=== PATIENT | female | born 1980 | race Caucasian/White ===

== ENCOUNTER 2018-01-12 20:23 | Inpatient (IN) ==
[2018-01-12] MEDS ORDERED: KETOROLAC 60 MG/2 ML VIAL IM STA (22:18)
[2018-01-12] MEDS ORDERED: METHOCARBAMOL 500 MG TABLET PO STA (22:18)
[2018-01-12] MEDS ORDERED: methylPREDNISolone SOD SUC 125 MG/2 ML VIAL IM STA (22:18)
[2018-01-12] MEDS ORDERED: METHOCARBAMOL 500 MG TABLET ONE (22:37)
[2018-01-12] MEDS ORDERED: KETOROLAC 60 MG/2 ML VIAL IM ONE (22:37)
[2018-01-12] MEDS ORDERED: methylPREDNISolone SOD SUC 125 MG/2 ML VIAL ONE (22:37)
[2018-01-12 22:58] LABS: Apearance,Urine CLEAR (Clear); Bilirubin,Urine Negative (Negative); Blood, Urine Negative (Negative); Glucose,Urine (UA) >=500 mg/dL (Negative); Ketones,Urine 80 mg/dL (Negative); Mucus,Urine Occasional /LPF (Occasional); Nitrite,Urine Negative (Negative); Protein,Urine Negative; RBC,Urine <1 /HPF (0-4); Squamous Epithelial Cell,Urine Occasional /HPF (0-10); Urine Color Straw (Yellow); Urine Specific Gravity 1.025 (1.001-1.035); Urine Urobilinogen < 2.0 EU/DL (0.2-1.0); WBC,Urine <1 /HPF (0-6)
[2018-01-13] MEDS ORDERED: SODIUM CHLORIDE 0.9% 1,000 ML IV STA ×2 (00:06→01:50)
[2018-01-13 00:41] LABS: Basophils # 0.1 10*3/uL (0.0-0.2); Basophils % 0.8 % (0.0-0.8); Eosinophils # 0.2 10*3/uL (0.0-0.87); Eosinophils % 3.3 % (0.00-10.9); Hematocrit 48.8 VOL% (35.7-47.0); Hemoglobin 16.5 GM/DL (12.0-16.0); Immature Granulocytes % 0.5 %; Immature Granulocytes Absolute 0.03 #; Lymphocytes # 1.3 10*3/uL (1.4-4.0); Lymphocytes % 20.3 % (21.3-54.2); Mean Corpuscular HGB Conc 33.8 GM/DL (32-36); Mean Corpuscular Hemoglobin 28 PG (27-34); Mean Platelet Volume 8.8 FL (9.6-12.0); Monocytes # 0.3 10*3/uL (0.11-0.8); Monocytes % 3.9 % (1.7-12.7); Neutrophils # 4.5 10*3/uL (1.4-7.4); Neutrophils % 71.2 % (38.7-73.9); Platelet Count 369 T/CUMM (130-400); Red Blood Count 5.88 MC/CUMM (3.8-5.5); Red Cell Distribution Width 13.2 % (9.3-17.3); White Blood Count 6.4 T/CUMM (4-12)
[2018-01-13 01:04] LABS: Alanine Aminotransferase 31 U/L (13-56); Albumin 4.6 G/DL (3.4-5.0); Alkaline Phosphatase 97 U/L (45-117); Amylase 40 U/L (25-115); Aspartate Amino Transferase 37 U/L (0-37); Blood Urea Nitrogen 17 MG/DL (7-18); Calcium 8.9 MG/DL (8.5-10.1); Glucose 318 MG/DL (74-106); Osmolality,Calculated 277.5 MOS/KG (273-304); Sodium 132 MMOL/L (136-145); Total Protein 8.8 G/DL (6.4-8.3); Troponin I Only < 0.015 NG/ML (0.00-0.045)
[2018-01-13] MEDS ORDERED: INSULIN REGULAR 100 UNIT/ML IV STA (01:12)
[2018-01-13 01:29] LABS: ABG Base Excess -14.8 MMOL/L (-2.5-2.5); ABG HCO3 13.5 MMOL/L (20-26); ABG Oxygen Saturation 96.8 % (95-100); ABG PCO2 22.4 MM HG (35-48); ABG PH 7.282 (7.35-7.45); ABG PO2 96.2 MM HG (80-95); ABG TCO2 9.2 MMOL/L (23-27); Allen Test Positive; Pt O2 Delivery Device Room Air
[2018-01-13] MEDS ORDERED: SODIUM CHLORIDE 0.9% IV PRN (02:54)
[2018-01-13] MEDS ORDERED: MAGNESIUM SULF RIDER 4 GM in PREMIX 1 EACH IV PRN (02:54)
[2018-01-13] MEDS ORDERED: MAGNESIUM SULF RIDER 2 GM in PREMIX 1 EACH IV PRN (02:54)
[2018-01-13] MEDS ORDERED: DEXTROSE 50% 25 GM/50 ML VIAL IV PRN ×2 (02:54)
[2018-01-13] MEDS ORDERED: BISACODYL 5 MG TABLET PO PRN (02:54)
[2018-01-13] MEDS ORDERED: ACETAMINOPHEN 325 MG TABLET PO PRN (02:54)
[2018-01-13] MEDS ORDERED: SODIUM PHOSPHATE IV PRN (02:54)
[2018-01-13] MEDS ORDERED: POTASSIUM CHLORIDE RIDER 10 MEQ in PREMIX 1 EACH IV PRN (02:54)
[2018-01-13] MEDS ORDERED: SODIUM BICARB INJ 100 MEQ in STERILE WATER INJ 400 ML IV PRN (02:54)
[2018-01-13] MEDS ORDERED: SODIUM CHLORIDE 0.9% 1,000 ML IV ONE (02:54)
[2018-01-13] MEDS ORDERED: INSULIN REGULAR DRIP 100 ML IV SCH (03:00)
[2018-01-13] MEDS: METHOCARBAMOL 750 MG TABLET PO PRN (04:40)
[2018-01-13] MEDS: SODIUM CHLORIDE 0.9% 1,000 ML IV SCH ×2 (05:20→07:40)
[2018-01-13 05:44] LABS: Basophils % 0.2 % (0.0-0.8); Eosinophils % 0.1 % (0.00-10.9); Hematocrit 46.9 VOL% (35.7-47.0); Hemoglobin 14.9 GM/DL (12.0-16.0); Immature Granulocytes % 0.3 %; Immature Granulocytes Absolute 0.03 #; Lymphocytes # 0.6 10*3/uL (1.4-4.0); Lymphocytes % 6.7 % (21.3-54.2); Mean Corpuscular HGB Conc 31.8 GM/DL (32-36); Mean Corpuscular Hemoglobin 27 PG (27-34); Mean Corpuscular Volume 86.2 FL (87-102); Mean Platelet Volume 9.1 FL (9.6-12.0); Monocytes # 0.1 10*3/uL (0.11-0.8); Monocytes % 0.5 % (1.7-12.7); Neutrophils # 8.6 10*3/uL (1.4-7.4); Neutrophils % 92.2 % (38.7-73.9); Platelet Count 321 T/CUMM (130-400); Red Blood Count 5.44 MC/CUMM (3.8-5.5); Red Cell Distribution Width 13.1 % (9.3-17.3); White Blood Count 9.4 T/CUMM (4-12)
[2018-01-13 06:03] LABS: Calcium 7.6 MG/DL (8.5-10.1); Osmolality,Calculated 279.7 MOS/KG (273-304); Potassium 3.8 MMOL/L (3.5-5.1)
[2018-01-13 06:09] LABS: Giant Platelets Few; Hypochromasia 1+; Lymphocytes 6 % (20-55); Platelet Estimate Adequate; Segmented Neutrophils 94 % (50-85); Total Cells Counted 100
[2018-01-13] MEDS: DEXTROSE 5% NACL 0.9% 1,000 ML IV SCH ×4 (06:30→13:24)
[2018-01-13] MEDS ORDERED: SODIUM CHLORIDE 0.9% 1,000 ML IV SCH (07:54)
[2018-01-13 08:22] LABS: Calcium 7.4 MG/DL (8.5-10.1); Osmolality,Calculated 281.7 MOS/KG (273-304); Potassium 3.6 MMOL/L (3.5-5.1)
[2018-01-13] MEDS: PANTOPRAZOLE 40 MG TABLET PO SCH (08:36)
[2018-01-13] MEDS: ENOXAPARIN 40 MG/0.4 ML SYRINGE SUBCUT SCH (08:41)
[2018-01-13 13:28] LABS: Calcium 7.3 MG/DL (8.5-10.1); Osmolality,Calculated 280.3 MOS/KG (273-304); Potassium 3.9 MMOL/L (3.5-5.1)
[2018-01-13 15:26] LABS: Calcium 7.5 MG/DL (8.5-10.1); Osmolality,Calculated 281.1 MOS/KG (273-304); Potassium 3.1 MMOL/L (3.5-5.1)
[2018-01-13] MEDS ORDERED: DEXT 5% NACL 0.9% KCL 20 MEQ 20 MEQ/1,000 ML BAG IV SCH (16:00)
[2018-01-13] MEDS ORDERED: DEXT 5% NACL 0.9% KCL 40 MEQ 40 MEQ/1,000 ML BAG IV SCH (16:00)
[2018-01-13] MEDS ORDERED: GLUCAGON 1 MG VIAL IM PRN (17:24)
[2018-01-13] MEDS: POTASSIUM CHLORIDE INJ 40 MEQ in SODIUM CHLORIDE 0.45% 1,000 ML IV SCH (18:16)
[2018-01-13] MEDS: INSULIN LISPRO 100 UNIT/ML SUBCUT SCH (18:17)
[2018-01-13 19:04] LABS: Calcium 7.9 MG/DL (8.5-10.1); Osmolality,Calculated 283.1 MOS/KG (273-304); Potassium 3.1 MMOL/L (3.5-5.1)
[2018-01-13] MEDS: SODIUM CHLORIDE 0.45% 1,000 ML IV SCH (23:24)
[2018-01-13 23:31] LABS: Calcium 7.5 MG/DL (8.5-10.1); Osmolality,Calculated 290.4 MOS/KG (273-304)
[2018-01-14] MEDS: INSULIN LISPRO 100 UNIT/ML SUBCUT SCH ×4 (00:43→19:07)
[2018-01-14] MEDS: METHOCARBAMOL 750 MG TABLET PO PRN ×2 (00:43→23:22)
[2018-01-14] MEDS: POTASSIUM CHLORIDE INJ 40 MEQ in SODIUM CHLORIDE 0.45% 1,000 ML IV SCH ×2 (04:15→10:04)
[2018-01-14] MEDS: SODIUM CHLORIDE 0.45% 1,000 ML IV SCH ×3 (04:15→21:16)
[2018-01-14] MEDS: ONDANSETRON 4 MG/2 ML VIAL IV PRN ×2 (04:20→21:05)
[2018-01-14] MEDS: ENOXAPARIN 40 MG/0.4 ML SYRINGE SUBCUT SCH (08:29)
[2018-01-14] MEDS: PANTOPRAZOLE 40 MG TABLET PO SCH (08:29)
[2018-01-14 09:18] LABS: Basophils % 0.3 % (0.0-0.8); Eosinophils % 0.5 % (0.00-10.9); Hematocrit 38.9 VOL% (35.7-47.0); Hemoglobin 13.1 GM/DL (12.0-16.0); Immature Granulocytes % 0.3 %; Immature Granulocytes Absolute 0.03 #; Lymphocytes # 1.6 10*3/uL (1.4-4.0); Lymphocytes % 18.4 % (21.3-54.2); Mean Corpuscular HGB Conc 33.7 GM/DL (32-36); Mean Corpuscular Hemoglobin 28 PG (27-34); Mean Corpuscular Volume 82.8 FL (87-102); Mean Platelet Volume 9.3 FL (9.6-12.0); Monocytes # 0.5 10*3/uL (0.11-0.8); Neutrophils # 6.5 10*3/uL (1.4-7.4); Neutrophils % 74.5 % (38.7-73.9); Platelet Count 261 T/CUMM (130-400); Red Cell Distribution Width 13.4 % (9.3-17.3); White Blood Count 8.7 T/CUMM (4-12)
[2018-01-14 09:53] LABS: Calcium 7.7 MG/DL (8.5-10.1); Osmolality,Calculated 289.3 MOS/KG (273-304); Potassium 4.3 MMOL/L (3.5-5.1)
[2018-01-14] MEDS: CALCIUM (CARBONATE) 600 MG TABLET PO SCH (10:49)
[2018-01-14] MEDS ORDERED: GLUCAGON 1 MG VIAL IM PRN (13:38)
[2018-01-14] MEDS ORDERED: DEXTROSE 50% 25 GM/50 ML VIAL IV PRN (13:38)
[2018-01-14 18:07] LABS: Calcium 8.5 MG/DL (8.5-10.1); Osmolality,Calculated 285.8 MOS/KG (273-304); Potassium 4.1 MMOL/L (3.5-5.1)
[2018-01-15] MEDS: INSULIN LISPRO 100 UNIT/ML SUBCUT SCH ×2 (00:11→05:39)
[2018-01-15] MEDS: SODIUM CHLORIDE 0.45% 1,000 ML IV SCH (05:06)
[2018-01-15 05:51] LABS: Basophils % 0.6 % (0.0-0.8); Eosinophils # 0.2 10*3/uL (0.0-0.87); Eosinophils % 3.3 % (0.00-10.9); Hematocrit 34.9 VOL% (35.7-47.0); Hemoglobin 11.7 GM/DL (12.0-16.0); Immature Granulocytes % 0.2 %; Immature Granulocytes Absolute 0.01 #; Lymphocytes % 38.4 % (21.3-54.2); Mean Corpuscular HGB Conc 33.5 GM/DL (32-36); Mean Corpuscular Hemoglobin 28 PG (27-34); Mean Corpuscular Volume 83.5 FL (87-102); Mean Platelet Volume 9.7 FL (9.6-12.0); Monocytes # 0.4 10*3/uL (0.11-0.8); Monocytes % 8.2 % (1.7-12.7); Neutrophils # 2.6 10*3/uL (1.4-7.4); Neutrophils % 49.3 % (38.7-73.9); Platelet Count 242 T/CUMM (130-400); Red Blood Count 4.18 MC/CUMM (3.8-5.5); Red Cell Distribution Width 13.6 % (9.3-17.3); White Blood Count 5.2 T/CUMM (4-12)
[2018-01-15 06:24] LABS: Calcium 7.9 MG/DL (8.5-10.1); Osmolality,Calculated 284.3 MOS/KG (273-304)
[2018-01-15 09:54] VITALS: BP 108/53
[2018-01-15] MEDS: CALCIUM (CARBONATE) 600 MG TABLET PO SCH (10:03)
[2018-01-15] MEDS: PANTOPRAZOLE 40 MG TABLET PO SCH (10:03)
[2018-01-15] MEDS: ENOXAPARIN 40 MG/0.4 ML SYRINGE SUBCUT SCH (10:03)
[2018-01-15] MEDS ORDERED: INSULIN LISPRO 100 UNIT/ML SUBCUT SCH (16:30)
[2018-01-15] MEDS ORDERED: INSULIN NPH/REGULAR 70/30 100 UNIT/ML SUBCUT SCH (16:30)
[2018-01-16] MEDS ORDERED: INSULIN NPH/REGULAR 70/30 100 UNIT/ML SUBCUT SCH (07:30)
== END 2018-01-15 18:55 | disposition home or self-care (01) | DRG 639 ==
LOC: N.ED 20:23 → N.EDINP 01-13 02:54 → SUATTDRO 01-13 02:54 → N.CC 01-13 03:29 → N.4E 01-14 15:25
PROVIDERS: ADMIT Internal Medicine; ATTEND Internal Medicine

== ENCOUNTER 2019-06-26 02:22 | Observation (INO) ==
[2019-06-26] MEDS ORDERED: SODIUM CHLORIDE 0.9% 2,000 ML IV STA (03:06)
[2019-06-26] MEDS ORDERED: ONDANSETRON 4 MG/2 ML VIAL IV STA (03:16)
[2019-06-26] MEDS ORDERED: ONDANSETRON 4 MG/2 ML VIAL ONE (03:17)
[2019-06-26 03:20] LABS: Basophils % 0.2 % (0.0-0.8); Eosinophils % 0.4 % (0.00-10.9); Hematocrit 39.6 VOL% (35.7-47.0); Hemoglobin 13.4 GM/DL (12.0-16.0); Immature Granulocytes % 0.2 %; Immature Granulocytes Absolute 0.01 #; Lymphocytes # 0.4 10*3/uL (1.4-4.0); Lymphocytes % 8.1 % (21.3-54.2); Mean Corpuscular HGB Conc 33.8 GM/DL (32-36); Mean Corpuscular Volume 85.5 FL (87-102); Mean Platelet Volume 9.5 FL (9.6-12.0); Monocytes % 0.4 % (1.7-12.7); Neutrophils % 90.7 % (38.7-73.9); Platelet Count 217 T/CUMM (130-400); Red Blood Count 4.63 MC/CUMM (3.8-5.5); Red Cell Distribution Width 12.9 % (9.3-17.3); White Blood Count 4.5 T/CUMM (4-12)
[2019-06-26 03:34] LABS: Albumin 3.3 G/DL (3.4-5.0); Bilirubin,Total 1.3 MG/DL (0.2-1.0); Calcium 8.8 MG/DL (8.5-10.1); Total Protein 6.9 G/DL (6.4-8.3)
[2019-06-26 03:47] LABS: Apearance,Urine CLEAR (Clear); Bacteria,Urine Occasional /HPF (Few); Bilirubin,Urine Negative (Negative); Blood, Urine Moderate mg/dL (Negative); Glucose,Urine (UA) >=500 mg/dL (Negative); Ketones,Urine Negative (Negative); Mucus,Urine Occasional /LPF (Occasional); Nitrite,Urine Positive (Negative); Protein,Urine Negative; RBC,Urine 13 /HPF (0-4); Squamous Epithelial Cell,Urine Occasional /HPF (0-10); Urine Color Amber (Yellow); Urine Specific Gravity 1.017 (1.001-1.035); WBC,Urine 4 /HPF (0-6)
[2019-06-26 04:08] LABS: VBG HCO3 21.7 MEQ/L (24-28); VBG Oxygen Saturation 86.1 %; VBG PCO2 33.6 MMHG (41-51); VBG PH 7.403
[2019-06-26] MEDS ORDERED: cefTRIAXone 1,000 MG in SODIUM CHLORIDE 0.9% 100 ML IV STA (04:09)
[2019-06-26 04:12] LABS: Lymphocytes 14 % (20-55); Segmented Neutrophils 86 % (50-85); Total Cells Counted 100
[2019-06-26 04:14] LABS: Hypochromasia Slight; Microcytosis 1+
[2019-06-26 04:15] LABS: Platelet Estimate Normal; Polychromasia Slight
[2019-06-26] MEDS ORDERED: ONDANSETRON 4 MG/2 ML VIAL IV PRN (04:21)
[2019-06-26] MEDS ORDERED: ACETAMINOPHEN 325 MG TABLET PO PRN (04:21)
[2019-06-26] MEDS ORDERED: GLUCAGON 1 MG VIAL IM PRN (05:43)
[2019-06-26] MEDS ORDERED: DEXTROSE 50% 25 GM/50 ML VIAL IV PRN (05:43)
[2019-06-26] MEDS ORDERED: ENOXAPARIN 40 MG/0.4 ML SYRINGE SUBCUT SCH (06:00)
[2019-06-26] MEDS: SODIUM CHLORIDE 0.9% 1,000 ML IV SCH ×3 (06:34→21:12)
[2019-06-26 07:18] LABS: Basophils % 0.2 % (0.0-0.8); Eosinophils % 0.1 % (0.00-10.9); Hematocrit 36.7 VOL% (35.7-47.0); Hemoglobin 12.3 GM/DL (12.0-16.0); Immature Granulocytes % 0.3 %; Immature Granulocytes Absolute 0.04 #; Lymphocytes # 0.3 10*3/uL (1.4-4.0); Lymphocytes % 2.6 % (21.3-54.2); Mean Corpuscular HGB Conc 33.5 GM/DL (32-36); Mean Corpuscular Volume 84.8 FL (87-102); Mean Platelet Volume 9.5 FL (9.6-12.0); Monocytes % 2.8 % (1.7-12.7); Platelet Count 204 T/CUMM (130-400); Red Blood Count 4.33 MC/CUMM (3.8-5.5); Red Cell Distribution Width 12.9 % (9.3-17.3); White Blood Count 12.5 T/CUMM (4-12)
[2019-06-26] MEDS: INSULIN REGULAR 100 UNIT/ML SUBCUT SCH ×4 (07:45→21:11)
[2019-06-26 07:54] LABS: Albumin 2.7 G/DL (3.4-5.0); Bilirubin,Total 0.5 MG/DL (0.2-1.0); Calcium 7.9 MG/DL (8.5-10.1); Osmolality,Calculated 277.5 MOS/KG (273-304); Total Protein 5.9 G/DL (6.4-8.3)
[2019-06-26 09:34] LABS: Band Neutrophils 10 % (0-10); Lymphocytes 3 % (20-55); Microcytosis Slight; Platelet Estimate Normal; Polychromasia Slight; Segmented Neutrophils 86 % (50-85); Total Cells Counted 100
[2019-06-26] MEDS ORDERED: POTASSIUM CHLORIDE 20 MEQ TABLET PO ONE (09:34)
[2019-06-26] MEDS: PANTOPRAZOLE 40 MG TABLET PO SCH (09:55)
[2019-06-26] MEDS: ENOXAPARIN 40 MG/0.4 ML SYRINGE SUBCUT SCH (09:56)
[2019-06-26] MEDS ORDERED: ALBUTEROL 2.5 MG/3 ML NEB RESP TX PRN (11:37)
[2019-06-26] MEDS: DOCUSATE SODIUM 100 MG CAPSULE PO SCH ×2 (14:31→21:12)
[2019-06-26] MEDS: POLYETHYLENE GLYCOL POWDER 17 GM PACK PO SCH (14:31)
[2019-06-26] MEDS: GENTAMICIN INJ 320 MG in SODIUM CHLORIDE 0.9% 100 ML IV SCH (18:41)
[2019-06-26] MEDS ORDERED: INSULIN NPH/REGULAR 70/30 100 UNIT/ML SUBCUT SCH (21:00)
[2019-06-26] MEDS: IBUPROFEN 800 MG TABLET PO PRN (21:12)
[2019-06-27] MEDS: SODIUM CHLORIDE 0.9% 1,000 ML IV SCH ×3 (01:54→10:40)
[2019-06-27] MEDS ORDERED: cefTRIAXone 1,000 MG in SYRINGE 1 EACH IV SCH (06:00)
[2019-06-27 06:05] LABS: Basophils % 0.4 % (0.0-0.8); Eosinophils % 0.4 % (0.00-10.9); Hematocrit 36.5 VOL% (35.7-47.0); Immature Granulocytes % 0.6 %; Immature Granulocytes Absolute 0.03 #; Lymphocytes # 0.5 10*3/uL (1.4-4.0); Lymphocytes % 9.7 % (21.3-54.2); Mean Corpuscular HGB Conc 32.9 GM/DL (32-36); Mean Corpuscular Volume 86.9 FL (87-102); Mean Platelet Volume 9.5 FL (9.6-12.0); Monocytes % 3.8 % (1.7-12.7); Neutrophils % 85.1 % (38.7-73.9); Platelet Count 167 T/CUMM (130-400); Red Cell Distribution Width 13.1 % (9.3-17.3); White Blood Count 4.8 T/CUMM (4-12)
[2019-06-27 06:26] LABS: Calcium 7.7 MG/DL (8.5-10.1); Osmolality,Calculated 280.3 MOS/KG (273-304)
[2019-06-27] MEDS: INSULIN REGULAR 100 UNIT/ML SUBCUT SCH ×3 (07:25→16:50)
[2019-06-27 08:14] LABS: Lymphocytes 1 % (20-55); Platelet Estimate Adequate; Polychromasia Slight; Segmented Neutrophils 95 % (50-85); Total Cells Counted 100
[2019-06-27] MEDS ORDERED: INSULIN NPH/REGULAR 70/30 100 UNIT/ML SUBCUT SCH (09:00)
[2019-06-27] MEDS: PANTOPRAZOLE 40 MG TABLET PO SCH (09:41)
[2019-06-27] MEDS: POLYETHYLENE GLYCOL POWDER 17 GM PACK PO SCH (09:41)
[2019-06-27] MEDS: ENOXAPARIN 40 MG/0.4 ML SYRINGE SUBCUT SCH (09:41)
[2019-06-27] MEDS: DOCUSATE SODIUM 100 MG CAPSULE PO SCH (09:41)
[2019-06-27] MEDS: IBUPROFEN 800 MG TABLET PO PRN (09:52)
[2019-06-27] MEDS ORDERED: MAGNESIUM SULF RIDER 2 GM in PREMIX 1 EACH IV ONE (11:42)
[2019-06-27 15:25] VITALS: BP 103/58
[2019-06-27] MEDS: GENTAMICIN INJ 320 MG in SODIUM CHLORIDE 0.9% 100 ML IV SCH (16:47)
== END 2019-06-27 17:38 | disposition home or self-care (01) ==
LOC: N.EDINP 02:22 → N.ED 02:22 → SUATTDRO 04:21 → N.5E 04:55
PROVIDERS: ADMIT Internal Medicine; ATTEND Internal Medicine

== ENCOUNTER 2019-06-28 19:22 | Observation (INO) ==
[2019-06-28] MEDS ORDERED: HYDROmorphone 2 MG/1 ML VIAL IV STA (20:49)
[2019-06-28] MEDS ORDERED: LEVOFLOXACIN INJ 750 MG in PREMIX 1 EACH IV STA (20:49)
[2019-06-28] MEDS ORDERED: SODIUM CHLORIDE 0.9% 1,000 ML IV STA (20:49)
[2019-06-28] MEDS ORDERED: ONDANSETRON 4 MG/2 ML VIAL IV STA (20:49)
[2019-06-28] MEDS ORDERED: KETOROLAC 30 MG/1 ML VIAL IV STA (20:49)
[2019-06-28 20:58] LABS: Basophils % 0.2 % (0.0-0.8); Eosinophils % 0.6 % (0.00-10.9); Hematocrit 40.5 VOL% (35.7-47.0); Hemoglobin 13.8 GM/DL (12.0-16.0); Immature Granulocytes % 0.8 %; Immature Granulocytes Absolute 0.04 #; Lymphocytes # 0.7 10*3/uL (1.4-4.0); Lymphocytes % 14.1 % (21.3-54.2); Mean Corpuscular HGB Conc 34.1 GM/DL (32-36); Mean Corpuscular Volume 83.3 FL (87-102); Monocytes % 5.4 % (1.7-12.7); Neutrophils % 78.9 % (38.7-73.9); Platelet Count 226 T/CUMM (130-400); Red Blood Count 4.86 MC/CUMM (3.8-5.5); Red Cell Distribution Width 13.1 % (9.3-17.3)
[2019-06-28 21:31] LABS: Albumin 3.4 G/DL (3.4-5.0); Bilirubin,Total 0.5 MG/DL (0.2-1.0); Calcium 8.5 MG/DL (8.5-10.1); Osmolality,Calculated 273.1 MOS/KG (273-304)
[2019-06-28] MEDS ORDERED: MAGNESIUM SULF RIDER 2 GM in PREMIX 1 EACH IV STA ×2 (21:41→23:10)
[2019-06-28 22:17] LABS: Apearance,Urine CLEAR (Clear); Bilirubin,Urine Negative (Negative); Blood, Urine Large mg/dL (Negative); Glucose,Urine (UA) >=500 mg/dL (Negative); Ketones,Urine 20 mg/dL (Negative); Mucus,Urine Occasional /LPF (Occasional); Nitrite,Urine Negative (Negative); Protein,Urine Negative; RBC,Urine 64 /HPF (0-4); Squamous Epithelial Cell,Urine Occasional /HPF (0-10); Urine Color Yellow (Yellow); Urine Urobilinogen < 2.0 EU/DL (0.2-1.0); WBC,Urine 1 /HPF (0-6)
[2019-06-28] MEDS ORDERED: DEXTROSE 50% 25 GM/50 ML VIAL IV PRN ×2 (23:12→23:25)
[2019-06-28] MEDS ORDERED: GLUCAGON 1 MG VIAL IM PRN (23:12)
[2019-06-28] MEDS ORDERED: SODIUM PHOSPHATE ENEMA 133 ML BOTTLE RECTAL STA (23:13)
[2019-06-28] MEDS ORDERED: ACETAMINOPHEN 325 MG TABLET PO PRN (23:14)
[2019-06-28] MEDS ORDERED: ALBUTEROL 2.5 MG/3 ML NEB RESP TX PRN (23:24)
[2019-06-28 23:52] LABS: Hepatitis B Core IgM Quant 0.09 Index; Hepatitis B Surface Ag Quant 0.21 Index; Hepatitis B Surface Ag Result Negative (Negative); Hepatitis C Virus Ab Quant 0.12 Index; Hepatitis C Virus Ab Result Negative (Negative)
[2019-06-29] MEDS: SODIUM CHLORIDE 0.9% 1,000 ML IV SCH ×2 (01:12→09:42)
[2019-06-29 05:44] LABS: Basophils % 0.5 % (0.0-0.8); Eosinophils # 0.1 10*3/uL (0.0-0.87); Eosinophils % 2.8 % (0.00-10.9); Hematocrit 35.5 VOL% (35.7-47.0); Hemoglobin 11.9 GM/DL (12.0-16.0); Immature Granulocytes Absolute 0.04 #; Lymphocytes # 1.1 10*3/uL (1.4-4.0); Lymphocytes % 27.6 % (21.3-54.2); Mean Corpuscular HGB Conc 33.5 GM/DL (32-36); Mean Corpuscular Volume 83.9 FL (87-102); Mean Platelet Volume 9.8 FL (9.6-12.0); Neutrophils % 57.1 % (38.7-73.9); Platelet Count 186 T/CUMM (130-400); Red Blood Count 4.23 MC/CUMM (3.8-5.5); Red Cell Distribution Width 12.9 % (9.3-17.3)
[2019-06-29 05:55] LABS: Alanine Aminotransferase 72 U/L (13-56); Albumin 2.5 G/DL (3.4-5.0); Alkaline Phosphatase 402 U/L (45-117); Aspartate Amino Transferase 45 U/L (0-37); Bilirubin,Total < 0.39 MG/DL (0.2-1.0); Blood Urea Nitrogen 5 MG/DL (7-18); Calcium 8.1 MG/DL (8.5-10.1); Estimated Glom Filtration Rate 115 ML/MIN; Glucose 119 MG/DL (74-106); Osmolality,Calculated 276.4 MOS/KG (273-304); Total Protein 6.1 G/DL (6.4-8.3)
[2019-06-29 06:12] LABS: Band Neutrophils 3 % (0-10); Eosinophils 4 % (0-10); Hypochromasia 1+; Lymphocytes 17 % (20-55); Platelet Estimate Adequate; Segmented Neutrophils 69 % (50-85); Total Cells Counted 100
[2019-06-29 06:13] LABS: Ovalocytes Slight
[2019-06-29] MEDS: INSULIN LISPRO 100 UNIT/ML SUBCUT SCH ×4 (08:27→22:29)
[2019-06-29] MEDS: ENOXAPARIN 40 MG/0.4 ML SYRINGE SUBCUT SCH (08:30)
[2019-06-29] MEDS ORDERED: POTASSIUM CHLORIDE 20 MEQ TABLET PO ONE (08:30)
[2019-06-29] MEDS: metroNIDAZOLE INJ 500 MG in PREMIX 1 EACH IV SCH ×3 (08:31→22:32)
[2019-06-29] MEDS: INSULIN NPH/REGULAR 70/30 100 UNIT/ML SUBCUT SCH (09:30)
[2019-06-29] MEDS: PANTOPRAZOLE 40 MG TABLET PO SCH ×2 (09:31→22:30)
[2019-06-29] MEDS: LACTATED RINGERS 1,000 ML IV SCH ×2 (12:22→17:58)
[2019-06-29] MEDS: IBUPROFEN 600 MG TABLET PO PRN (17:53)
[2019-06-29] MEDS ORDERED: INSULIN NPH/REGULAR 70/30 100 UNIT/ML SUBCUT SCH (21:00)
[2019-06-29] MEDS ORDERED: LEVOFLOXACIN INJ 750 MG in PREMIX 1 EACH IV SCH (23:00)
[2019-06-30] MEDS: IBUPROFEN 600 MG TABLET PO PRN (01:48)
[2019-06-30] MEDS: LACTATED RINGERS 1,000 ML IV SCH (03:41)
[2019-06-30 06:10] LABS: Basophils % 0.6 % (0.0-0.8); Eosinophils # 0.2 10*3/uL (0.0-0.87); Eosinophils % 4.6 % (0.00-10.9); Hemoglobin 11.2 GM/DL (12.0-16.0); Immature Granulocytes % 1.5 %; Immature Granulocytes Absolute 0.05 #; Lymphocytes # 1.2 10*3/uL (1.4-4.0); Lymphocytes % 37.8 % (21.3-54.2); Mean Corpuscular HGB Conc 32.9 GM/DL (32-36); Mean Platelet Volume 9.9 FL (9.6-12.0); Monocytes % 15.2 % (1.7-12.7); Neutrophils % 40.3 % (38.7-73.9); Platelet Count 170 T/CUMM (130-400); Red Blood Count 4.05 MC/CUMM (3.8-5.5); Red Cell Distribution Width 13.1 % (9.3-17.3); White Blood Count 3.2 T/CUMM (4-12)
[2019-06-30 06:33] LABS: Hypochromasia 1+; Ovalocytes Slight; Platelet Estimate Adequate
[2019-06-30 06:44] LABS: Alanine Aminotransferase 77 U/L (13-56); Albumin 2.7 G/DL (3.4-5.0); Alkaline Phosphatase 400 U/L (45-117); Aspartate Amino Transferase 51 U/L (0-37); Bilirubin,Total < 0.39 MG/DL (0.2-1.0); Blood Urea Nitrogen 7 MG/DL (7-18); Calcium 8.7 MG/DL (8.5-10.1); Estimated Glom Filtration Rate 109 ML/MIN; Glucose 174 MG/DL (74-106); Osmolality,Calculated 289.7 MOS/KG (273-304); Total Protein 6.1 G/DL (6.4-8.3)
[2019-06-30 08:19] VITALS: BP 126/51
[2019-06-30] MEDS: metroNIDAZOLE INJ 500 MG in PREMIX 1 EACH IV SCH (08:46)
[2019-06-30] MEDS: INSULIN NPH/REGULAR 70/30 100 UNIT/ML SUBCUT SCH (08:49)
[2019-06-30] MEDS: PANTOPRAZOLE 40 MG TABLET PO SCH (08:49)
[2019-06-30] MEDS: INSULIN LISPRO 100 UNIT/ML SUBCUT SCH (08:50)
[2019-06-30] MEDS: ENOXAPARIN 40 MG/0.4 ML SYRINGE SUBCUT SCH (08:51)
== END 2019-06-30 10:00 | disposition home or self-care (01) ==
LOC: N.ED 19:22 → INTOOBSV 23:09 → N.EDINP 23:09 → N.5E 23:48
PROVIDERS: ADMIT Internal Medicine; ATTEND Internal Medicine